=== PATIENT | female | born 1960 | race Caucasian/White ===

== ENCOUNTER 2017-05-11 14:30 | Emergency (ER) | payer OTHER, MEDICAID ==
[~2017-05-11] VITALS: Ht 154.9 cm; Wt 83.9 kg
[~2017-05-11 14:30] MED LIST: ARIP1TAB5; CARB200T4; CLON0.1T; HYDR25TA4; LORA2TAB10; SIMV-13; TRAZ100T2; VALS160T51
[2017-05-11 14:47] VITALS: BP 183/99
[2017-05-11] MEDS ORDERED: LORazepam 2MG/ML-1ML VIAL IM ONE (15:00)
== END 2017-05-11 15:52 | disposition home or self-care (01) ==
LOC: ER 14:36
DX: F41.9 Anxiety disorder, unspecified (principal); F31.9 Bipolar disorder, unspecified; I10 Essential (primary) hypertension; E78.5 Hyperlipidemia, unspecified; Z88.8 Allergy status to other drugs, medicaments and biological substances; Z79.899 Other long term (current) drug therapy
CPT/HCPCS: 96372; 99284; J2060